=== PATIENT | male | born 1985 | race Caucasian/White ===

== ENCOUNTER 2023-12-17 23:10 | Emergency (ER) | payer OTHER, SELFPAY ==
--- NOTE | ~2023-12-17 | XR_ITS ---
Right Hand Technique: PA, oblique, and lateral views were obtained. Clinical History: Injury Findings: There is an oblique, intra-articular, minimally displaced fracture the distal aspect of the fifth proximal phalanx. No other fracture or dislocation seen.. Joint spaces are preserved. Soft tis sues are unremarkable. Impression: Acute, oblique, intra-articular, minimally displaced fracture of the distal portion of the fifth prox imal phalanx. Reviewed, dictated and finalized at location M. [employer] Impression: Acute, oblique, intra-articular, minimally displaced fracture of the distal por tion of the fifth proximal phalanx.
[2023-12-17 23:17] VITALS: BP 149/81; PULSE 92; RESP 16; TEMP 36.6; O2SAT 99
--- NOTE | 2023-12-18 02:58 | ED.GENADULT ---
HPI - General Adult General Chief complaint: Extremity Problem,Nontraumatic Stated complaint: R pinky swelling Time Seen by Provider: 12/18/23 02:55 Source: patient Mode of arrival: ambulatory Limitations: no limitations History of Present Illness HPI narrative: This is a 38-year-old male who presents to the ED with chief complaint of right 5th digit injury while playing flag football tonight. Reports that he hurt it while catching a ball and continue to increasing pain and swelling. The reports difficulty with range of motion due to pain. Denies any further sites of pain or injury. Related Data Allergies Allergy/AdvReac Type Severity Reaction Status Date / Time No Known Allergies Allergy Verified 12/18/23 02:54 Review of Systems Review of Systems: All systems as dictated in HPI Exam Narrative: GENERAL: Well-appearing, well-nourished, and in no acute distress. HEAD: Normocephalic, atraumatic. EYES: PERRLA and EOMI. ENT: Nares clear, no rhinorrhea or epistaxis. Mucous membranes moist. Oropharynx without tonsillar hypertrophy exudate or other lesions. NECK: Supple. No adenopathy or masses. CHEST: No respiratory distress. Clear to auscultation. No wheezes rales or rhonchi HEART: Regular rate and rhythm. No murmur heard. Normal peripheral pulses. ABDOMEN: Soft, nontender, nondistended, normal active bowel sounds. MSK: Normal range of motion. No edema. SKIN: Warm, dry, no rash. NEURO: Alert and oriented x3. No focal deficits. PSYCH: Normal mood and affect. Course Vital Signs Vital signs: Vital Signs Temperature 97.8 F 12/17/23 23:17 Pulse Rate 92 12/17/23 23:17 Respiratory Rate 16 12/17/23 23:17 Blood Pressure 149/81 H 12/17/23 23:17 Pulse Oximetry 99 12/17/23 23:17 Temperature 97.8 F 12/17/23 23:17 Pulse Rate 92 12/17/23 23:17 Respiratory Rate 16 12/17/23 23:17 Blood Pressure 149/81 H 12/17/23 23:17 Pulse Oximetry 99 12/17/23 23:17 Medical Decision Making [facility] Narrative Medical decision making narrative: This is a 38-year-old male who presents to the ED with chief complaint of right pinky injury while playing flag football tonight. Vitals are normal. Exam shows mild tenderness and swelling to the proximal right pinky. Neurovascularly intact distally. X-ray show a nondisplaced fracture of the proximal phalanx of the 5th digit of the right hand. He was placed in finger splint here. Hand referral given. pt will be discharged in stable condition. Return precautions given and supportive measures discussed. Pt is understanding and agreeable with plan for discharge and follow-up with PCP. Vital Signs Vital Signs: Vital Signs Temperature 97.8 F 12/17/23 23:17 Pulse Rate 92 12/17/23 23:17 Respiratory Rate 16 12/17/23 23:17 Blood Pressure 149/81 H 12/17/23 23:17 Pulse Oximetry 99 12/17/23 23:17 Temperature 97.8 F 12/17/23 23:17 Pulse Rate 92 12/17/23 23:17 Respiratory Rate 16 12/17/23 23:17 Blood Pressure 149/81 H 12/17/23 23:17 Pulse Oximetry 99 12/17/23 23:17 Discharge Plan Discharge Clinical Impression: Fracture of proximal phalanx of digit of hand Patient Disposition: Home, Self-Care Condition: Stable Instructions: Antibiotic Form Additional Instructions: Your exam and imaging today show evidence right pinky finger fracture. Please take Tylenol and ibuprofen regularly for pain control. Hephzibah has been prescribed for breakthrough pain. This should feel better with immobilization. Follow-up with hand doctor. If you have any new or worsening symptoms please return to the ER for evaluation Prescriptions: New hydrocodone-acetaminophen 5-325 mg tablet 1 tablet PO Q8H PRN (Reason: pain) Qty: 7 0RF Follow-up/Referrals: Jose F Ca MD [Physician] - PHYSICIAN,ACCOUNT SERVICES COORDINATOR [Primary Care Provider] - Time of Disposition: :02
[2023-12-18 03:19] VITALS: BP 139/78; PULSE 90; RESP 17; O2SAT 100
== END 2023-12-18 03:21 | disposition home or self-care (01) ==
LOC: ANHED 12-18 03:11
PROVIDERS: Emergency Provider Physician Assistant
DX: S62.616A Displaced fracture of proximal phalanx of right little finger, initial encounter for closed fracture (principal); W21.01XA Struck by football, initial encounter; Y93.62 Activity, american flag or touch football
CPT/HCPCS: 29130; 73130; 99284

== ENCOUNTER 2024-01-04 08:49 | Outpatient (CLI) | payer OTHER, SELFPAY ==
--- NOTE | ~2024-01-04 | XR_ITS ---
EXAMINATION: XR finger 5th RT min 2V INDICATION: Right fifth proximal phalanx fracture, follow-up TECHNIQUE: Four views of the right fifth finger are obtained. COMPARISON: 12/17/2023 FINDINGS: Again seen is an oblique fracture at the palmar aspect of the fifth proximal phalanx which extends to the proximal interphalangeal joint. Minimal calcified callus has developed at the fracture site. There is persistent soft tissue swelling surrounding the fracture. No additional fracture is s een. IMPRESSION: 1. Oblique fracture of the fifth proximal phalanx extending to the proximal interphalangeal joint wit h early routine healing. Reviewed, dictated and finalized at location B. RAM DIRECTOR/MUSIC DIRECTOR IMPRESSION: 1. Oblique fracture of the fifth proximal phalanx extending to the proximal int erphalangeal joint with early routine healing.
== END 2024-01-04 08:50 | disposition home or self-care (01) ==
PROVIDERS: PCP Plastic Surgery; Visit Provider Plastic Surgery
DX: S62.616D Displaced fracture of proximal phalanx of right little finger, subsequent encounter for fracture with routine healing (principal); X58.XXXD Exposure to other specified factors, subsequent encounter
CPT/HCPCS: 73140

== ENCOUNTER 2024-01-25 09:34 | Outpatient (CLI) | payer OTHER, SELFPAY ==
--- NOTE | ~2024-01-25 | XR_ITS ---
EXAMINATION: XR finger 5th RT min 2V DATE: 01/25/2024 09:46 INDICATION: Fracture of the right fifth proximal phalanx TECHNIQUE: Dorsal palmar, lateral and 2 oblique views of the right fifth digit were obtained COMPARISON: 12/17/2023 and 01/04/2024 FINDINGS: No significant interval change in an oblique intra-articular fracture of the right fifth proximal pha lanx. There is no change in minimal proximal, palmar and radial displacement of the fragment comprisi ng the radial side of the head of the phalanx. Small amount of adjacent callus formation, not yet def initively solidly bridging. There is still readily discernible lucency along the fracture plane. No o ther fractures identified. Mild osteoarthritis at the distal radioulnar joint. Joint spaces are other fleming normal. IMPRESSION: 1. No significant change in a still relatively early healing of a minimally displaced intra-articular fracture at the head of the right fifth proximal phalanx. Reviewed, dictated and finalized at location B. IMPRESSION: 1. No significant change in a still relatively early healing of a minimally dis placed intra-articular fracture at the head of the right fifth proximal phalanx .
== END 2024-01-25 09:35 | disposition home or self-care (01) ==
LOC: ANHIMG 09:37
PROVIDERS: PCP Plastic Surgery; Visit Provider Plastic Surgery
DX: S62.619D Displaced fracture of proximal phalanx of unspecified finger, subsequent encounter for fracture with routine healing (principal); X58.XXXD Exposure to other specified factors, subsequent encounter
CPT/HCPCS: 73140

== ENCOUNTER 2024-02-09 08:30 | Outpatient (RCR) | payer OTHER, SELFPAY ==
--- NOTE | 2024-01-15 09:48 | OTOPEVAL1 ---
Assessment and note entered by Jim Daley, IGNACIO/Radha, CHT Evaluation Information Assessment Status Evaluation Diagnosis Displaced fracture of proximal phalanx of small finger, right hand Onset ~4 weeks ago Subjective Information Patient presents today to begin ROM of the hand. He has been immobilized x4 weeks. He is left handed. 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 Reporting minimal pain. Reported Pain Level Additional Pain Score Comments No pain at rest. Pain increased to 5/10 with active ROM. Assessment OT Clinical Summary Patient referred to OT s/p right small finger 1st phalanx fracture, treated conservatively. He presents with residual stiffness, weakness, and pain that limits return of functional ROM and use of the hand. Skilled OT indicated to maximize functional ROM and strength of the right hand to facilitate return to use for work and ADLs without pain and stiffness. Plan of Care Interventions Therapeutic Exercise,Manual Therapy,Therapeutic Activities,Hot Pack/Cold Pack,Paraffin OT Services Indicated Yes Treatment Frequency and 1-2x/week for 8 visits Duration These treatments will address the objective and functional deficits as defined above. The patient will be advanced safely and appropriately in order for the patient to progress towards his/her prior level of function. Additional exercises will be introduced and as well as a comprehensive home exercise program upon discharge, if needed, ?to ensure carryover of functional gains achieved in the clinic. This treatment plan has been reviewed and agreement upon by the patient.
--- NOTE | 2024-02-09 08:53 | OTOPDC ---
Assessment and note entered by Jim Daley, OTR/L, CHT Discharge Summary 02/09/24 Diagnosis Displaces fracture of proximal phalanx of small finger, right hand Subjective Information Patient has been participating in therapy x4 weeks. 8 weeks out from the fracture. He is back to using his hand without restriction at work, reporting that's going well, some residual tenderness if he bumps the finger. Reports feeling like his strength and flexibility have improved. States he still has a ROM deficit, but feels like the exercises are helping. ROM of the right small finger: - MCP flexion 90 deg. - PIP flexion 90 deg. - PIP extension -15 deg. - DIP flexion 60 deg. 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 He has made excellent progress with therapy and has been compliant with all materials. Measurements today demonstrate progress toward regaining normal ROM and strength of the right hand. He verbalizes excellent understanding of his HEP and understands the importance of continued compliance of his HEP for optimal outcomes. No further skilled OT indicated at this time. D/C with HEP. Plan of Care OT Services Indicated No
== END 2024-02-09 09:17 | disposition home or self-care (01) ==
LOC: ANHOT 08:30
PROVIDERS: PCP Plastic Surgery; Visit Provider Plastic Surgery
DX: S62.619D Displaced fracture of proximal phalanx of unspecified finger, subsequent encounter for fracture with routine healing (principal)
CPT/HCPCS: 97018; 97110; 97165

== ENCOUNTER 2025-02-01 17:54 | Emergency (ER) | payer OTHER, SELFPAY ==
--- NOTE | ~2025-02-01 | XR_ITS ---
HISTORY: pain at posterior calcaneus, no injury COMPARISON: None TECHNIQUE: 3 views of the right ankle were performed FINDINGS: No acute fracture or dislocation. No significant soft tissue swelling. The ankle mortise is preserved. Bone mineralization is age-appropriate. Ossification of the insertion of the Achilles tendon is identified, likely the focus of clinical conc alberto. IMPRESSION: Degenerative disease (as detailed above) without acute fracture. Reviewed, dictated and finalized at location A.
[2025-02-01 18:05] VITALS: BP 144/79; PULSE 68; RESP 18; TEMP 36.8; O2SAT 99
--- NOTE | 2025-02-01 18:58 | ED_ITS ---
HPI - Extremity Injury (Lower) General Chief Complaint: Extremity Injury, Lower Stated Complaint: Right Foot Pain Time Seen by Provider: 02/01/25 18:50 Source: patient and RN notes reviewed Mode of arrival: ambulatory (limping) Limitations: no limitations History of Present Illness HPI Narrative: Patient presents today complaining of pain to the right posterior ankle x3 days. Denies known injury or trauma. Denies numbness or tingling in the ankle or foot. Denies any known repetitive motions that may be causing his discomfort. He tried some ibuprofen today with mild relief. Currently rates his pain 8/10 w ith walking. Related Data Allergies Allergy/AdvReac Type Severity Reaction Status Date / Time No Known Allergies Allergy Verified 02/01/25 17:59 Review of Systems Review of Systems: CONSTITUTIONAL: Denies body aches, fever, chills, or sweats. EYES: Denies visual changes, redness, or discharge. ENT: Denies rhinorrhea, congestion, sore throat, or otalgia. CARDIOVASCULAR: Denies chest pain, palpitations, or edema. RESPIRATORY: Denies cough or dyspnea. GASTROINTESTINAL: Denies abdominal pain, nausea, vomiting, or diarrhea. GENITOURINARY: Denies dysuria or hematuria. SKIN: Denies rash, itching, or wounds. MUSCULOSKELETAL: + right heel pain NEUROLOGIC: Denies headache, numbness, tingling, or weakness. PSYCH: Denies depression or anxiety. [facility] Social History Social History Smoking status: Never smoker Comments At time of signature, I have reviewed and agree with nursing past medical, surgical, social and family history unless otherwise noted. Please see nursing chart for further information. There is no relevant family history pertinent to the presenting complaint Exam Narrative: GENERAL: Well-appearing, well-nourished, and in no acute distress. HEAD: Normocephalic, atraumatic. EYES: EOMI. No redness or drainage. Conjunctivae normal. ENT: Mucous membranes pink and moist. NECK: Normal AROM. CHEST: No respiratory distress. EXTREMITIES: Right foot: Point tenderness to the posterior right calcaneus. No additional pain or discomfort with palpation of the Achilles tendon for lateral heel or ankle. No edema, ecchymosis, erythema noted. Distal sensation intact. Capillary refill normal. Pedal pulse normal. Patient does have some discomfort with range of motion of the ankle. SKIN: Warm, dry, no rash. Capillary refill normal. Normal skin turgor. NEURO: No focal deficits. Alert and oriented x3. Gait steady. PSYCH: Normal affect. No signs of depression or anxiety. Course Course Level of Care: Express Care Visit Vital Signs Vital signs: Vital Signs Temperature 98.2 F 02/01/25 18:05 Pulse Rate 68 02/01/25 18:05 Respiratory Rate 18 02/01/25 18:05 Blood Pressure 144/79 H 02/01/25 18:05 Pulse Oximetry 99 02/01/25 18:05 Oxygen Delivery Room Air 02/01/25 18:05 Temperature 98.2 F 02/01/25 18:05 Pulse Rate 68 02/01/25 18:05 Respiratory Rate 18 02/01/25 18:05 Blood Pressure 144/79 H 02/01/25 18:05 Pulse Oximetry 99 02/01/25 18:05 Oxygen Delivery Room Air 02/01/25 18:05 Reviewed MDM - Extremity Injury (Lower) MDM Narrative Medical decision making narrative: X-ray shows no acute fracture or dislocation, but does show ossification at the insertion of the Achilles tendon, likely the focus of patient's pain. Discussed taking NSAID, prescription for diclofenac sent to pharmacy, with rest, ice, and follow-up with podiatry. Differential Diagnosis Differential diagnosis: Likely ankle sprain and strain, ankle fracture and other (Bone spur, arthritis, Achilles tendinitis) Imaging Data Radiologist's impression: ITS Impressions Ankle X-Ray 02/01/25 19:17 IMPRESSION: Degenerative disease (as detailed above) without acute fracture. Critical Care Time Critical Care Time Critical Care Time: No Discharge Plan Discharge Clinical Impression: Achilles tendon pain Patient Disposition: Home, Self-Care Condition: Stable Additional Instructions: Your x-ray has shown ossification at the insertion of your Achilles tendon, which is likely causing your pain. Elevate and ice the foot. Take the diclofenac for pain if needed. Follow-up with podiatry for further evaluation and treatment. Your blood pressure was elevated above 120/80 today at Urgent Care. This puts you above the threshold for follow up. Please schedule a followup visit with your personal physician as soon as possible, for further evaluation and treatment. Even blood pressure exceeding 120/80 may indicate pre-hypertension. Patient Language: Albanian Prescriptions: New diclofenac sodium 50 mg tablet,delayed release (DR/EC) 50 mg PO TID PRN (Reason: pain) Qty: 30 0RF Follow-up/Referrals: Steve Jones DPM [Physician] - Margarito,Debora Troy DPM [Non-Staff] - PHYSICIAN,DISPATCHER [employer] [Primary Care Provider] - Time of Disposition: 19:32
== END 2025-02-01 19:40 | disposition home or self-care (01) ==
PROVIDERS: Emergency Provider Nurse Practitioner
DX: M67.873 Other specified disorders of tendon, right ankle and foot (principal)
CPT/HCPCS: 73610; 99213; G0463

== ENCOUNTER 2025-05-19 12:03 | Emergency (ER) | payer OTHER, SELFPAY ==
[2025-05-19 12:11] VITALS: BP 140/76; PULSE 63; RESP 18; TEMP 36.7; O2SAT 99
--- NOTE | 2025-05-19 12:24 | ED_ITS ---
HPI - General Adult General Chief complaint: Dental/Oral Stated complaint: Dental Pain Source: patient Mode of arrival: ambulatory Limitations: no limitations History of Present Illness HPI narrative: Patient presents for evaluation of left-sided dental pain. Symptom onset approximately 2 weeks ago. He has several fractured teeth. No fever, chills, nausea, vomiting. He does not smoke. He rates the symptoms 8/10 severity. He took ibuprofen 200 mg with some improvement thereafter. Related Data Allergies Allergy/AdvReac Type Severity Reaction Status Date / Time No Known Allergies Allergy Verified 05/19/25 12:08 Review of Systems Review of Systems: CONSTITUTIONAL: Denies fever, chills, or sweats. EYES: Denies visual changes, redness, or discharge. ENT: Reports left sided dental pain. Denies rhinorrhea, congestion, sore throat, or otalgia. CARDIOVASCULAR: Denies chest pain, palpitations, or edema. RESPIRATORY: Denies cough or dyspnea. GASTROINTESTINAL: Denies abdominal pain, nausea, vomiting, or diarrhea. GENITOURINARY: Denies dysuria or hematuria. SKIN: Denies rash or itching. MUSCULOSKELETAL: Denies back pain, joint pain, or myalgia. NEUROLOGIC: Denies headache, numbness, dizziness, or weakness. PSYCHIATRIC: Denies anxiety or depression. PMFSH Past Medical History Medical History No pertinent past medical history Surgical History Surgical History No pertinent past surgical history Family History Family History Mother Family history non-contributory Social History Social History Smoking status: Never smoker Substance use: never Gender identity (if verbalized by the patient): Male Spiritual care concerns: No Exam Narrative: GENERAL: Well-appearing, well-nourished, and in no acute distress. HEAD: Normocephalic, atraumatic. EYES: PERRLA and EOMI. ENT: Nares clear, no rhinorrhea or epistaxis. Mucous membranes moist. Tooth #13 and tooth #19 are fractured. There is no visible or palpable abscess. Oropharynx without tonsillar hypertrophy exudate or other lesions. Bilateral TMs pearly masters nonbulging NECK: Supple. No adenopathy or masses. No carotid bruits or JVD CHEST: Clear to auscultation. No respiratory distress. No wheezes rales or rhonchi HEART: Regular rate and rhythm. No murmur heard. Normal peripheral pulses. ABDOMEN: Soft, nontender, nondistended, normal active bowel sounds. EXTREMITIES: Normal range of motion. No edema. SKIN: Warm, dry, no rash. NEURO: No focal deficits. Alert and oriented x3. PSYCH: Normal mood and affect. Course Course Emergency Course: This is a 39-year-old male who presented for evaluation of left sided dental pain. He has several fractures present. He may increase his ibuprofen from 200 mg to 800 mg and may take it 3 times daily with food. Will add penicillin. Follow-up with dentist. Go to the ER for worsening symptoms. Patient in agreement with plan of care Level of Care: Express Care Visit Vital Signs Vital signs: Vital Signs Temperature 36.7 C 05/19/25 12:11 Pulse Rate 63 05/19/25 12:11 Respiratory Rate 18 05/19/25 12:11 Blood Pressure 140/76 05/19/25 12:11 Pulse Oximetry 99 05/19/25 12:11 Oxygen Delivery Room Air 05/19/25 12:11 Temperature 36.7 C 05/19/25 12:11 Pulse Rate 63 05/19/25 12:11 Respiratory Rate 18 05/19/25 12:11 Blood Pressure 140/76 05/19/25 12:11 Pulse Oximetry 99 05/19/25 12:11 Oxygen Delivery Room Air 05/19/25 12:11 Medical Decision Making Vital Signs Vital Signs: Vital Signs Temperature 36.7 C 05/19/25 12:11 Pulse Rate 63 05/19/25 12:11 Respiratory Rate 18 05/19/25 12:11 Blood Pressure 140/76 05/19/25 12:11 Pulse Oximetry 99 05/19/25 12:11 Oxygen Delivery Room Air 05/19/25 12:11 Temperature 36.7 C 05/19/25 12:11 Pulse Rate 63 05/19/25 12:11 Respiratory Rate 18 05/19/25 12:11 Blood Pressure 140/76 05/19/25 12:11 Pulse Oximetry 99 05/19/25 12:11 Oxygen Delivery Room Air 05/19/25 12:11 Discharge Plan Discharge Clinical Impression: Fracture of tooth Patient Disposition: Home Condition: Stable Instructions: Antibiotic Form, Toothache (ED) Patient Language: Indonesian Prescriptions: New penicillin V potassium 500 mg tablet 500 mg PO Q6H Qty: 40 0RF Follow-up/Referrals: Darwin Webster MD [Physician] - Time of Disposition: 12:22
== END 2025-05-19 12:27 | disposition home or self-care (01) ==
PROVIDERS: Emergency Provider Nurse Practitioner
DX: S02.5XXA Fracture of tooth (traumatic), initial encounter for closed fracture (principal); X58.XXXA Exposure to other specified factors, initial encounter
CPT/HCPCS: 99213; G0463

== ENCOUNTER 2025-07-30 17:40 | Emergency (ER) | payer OTHER, SELFPAY ==
--- NOTE | ~2025-07-30 | XR_ITS ---
EXAMINATION: XR finger 5th LT min 2V, 07/30/2025 17:51 CDT HISTORY: LT 5th digit pain/bruising@mcp/prox phalanx jammed today COMPARISON: No comparisons available. Findings: Slightly displaced fracture proximal aspect proximal phalanx fifth digit. No significant degenerative changes. Soft tissues unremarkable. Impression: Fracture detailed above Reviewed, dictated and finalized at location A. Impression: Fracture detailed above
[2025-07-30 17:50] VITALS: BP 129/77; PULSE 79; RESP 18; TEMP 36.7; O2SAT 98
--- NOTE | 2025-07-30 17:59 | ED_ITS ---
HPI - Extremity Injury (Upper) General Chief Complaint: Extremity Injury, Upper Stated Complaint: Left Hand Finger Pain Time Seen by Provider: 07/30/25 18:00 Source: patient Mode of arrival: ambulatory Limitations: no limitations History of Present Illness HPI narrative: 39-year-old male presents with complaint of pain, swelling and bruising to left little finger. Pain started after sliding into 3rd base during kickball game. Range of motion decreased due to pain, distal neurovascularly intact. All systems reviewed and negative except as noted above. Related Data Home Medications ?Medication ?Instructions ?Recorded ?Confirmed ?Last Taken ?Type No Home Medications 07/30/25 07/30/25 U nknown History Allergies Allergy/AdvReac Type Severity Reaction Status Date / Time No Known Allergies Allergy Verified 07/30/25 17:50 [facility] Past Medical History Medical History No pertinent past medical history Surgical History Surgical History No pertinent past surgical history Family History Family History Mother Family history non-contributory Social History Social History Smoking status: Never smoker Substance use: never Gender identity (if verbalized by the patient): Male Spiritual care concerns: No Comments At time of signature, agree with nursing past medical, surgical, social and family history. There is no relevant family history pertinent to the presenting complaint. Exam Narrative: GENERAL: This is a well-nourished, well-developed patient, in no apparent distress. HEAD: normocephalic, atraumatic. EYES: PERRL. Sclera clear/white. Vision is grossly intact. EARS: External ears normal NOSE: External nose normal NECK: Neck supple, non-tender without lymphadenopathy, masses or thyromegaly. CARDIOVASCULAR: Regular rate and rhythm without murmurs, gallops, or rubs. RESPIRATORY: Clear to auscultation. Breath sounds equal bilaterally. No wheezes, rales, or rhonchi. SKIN: warm, Dry, intact with no suspicious lesions or rash, good texture and turgor. NEURO: awake, alert, and oriented to person, place and time. There were no obvious focal neurologic abnormalities. EXTREMITIES: Swelling to left little finger with bruising, tender to proximal phalanx. No deformity. Range of motion decreased due to pain and swelling. Distal neurovascularly intact. Course Course Level of Care: Express Care Visit Vital Signs Vital signs: Vital Signs Temperature 36.7 C 07/30/25 17:50 Pulse Rate 79 07/30/25 17:50 Respiratory Rate 18 07/30/25 17:50 Blood Pressure 129/77 07/30/25 17:50 Pulse Oximetry 98 07/30/25 17:50 Oxygen Delivery Room Air 07/30/25 17:50 Temperature 36.7 C 07/30/25 17:50 Pulse Rate 79 07/30/25 17:50 Respiratory Rate 18 07/30/25 17:50 Blood Pressure 129/77 07/30/25 17:50 Pulse Oximetry 98 07/30/25 17:50 Oxygen Delivery Room Air 07/30/25 17:50 Reviewed MDM - Extremity Injury (Upper) MDM Narrative Medical decision making narrative: x-ray of left little finger shows fracture to left proximal phalanx little finger with slight displaced. Patient placed in a finger splint. Referred to as he has seen him in the past when he fractured his right little finger. Differential Diagnosis Differential diagnosis: Likely finger sprain, dislocation of finger, fracture of hand and other (finger fracture) Imaging Data My impression: agree with radiologist Radiologist's impression: Ordering Physician: Clementina Galeana APRN Date of Service: 07/30/25 Procedure(s): XR finger 5th LT min 2V Accession Number(s): [id number] cc: SH[employer] MANAGER PHYSICIAN; Clementina Galeana APRN~ EXAMINATION: XR finger 5th LT min 2V, 07/30/2025 17:51 CDT HISTORY: LT 5th digit pain/bruising@mcp/prox phalanx jammed today COMPARISON: No comparisons available. Findings: Slightly displaced fracture proximal aspect proximal phalanx fifth digit. No significant degenerative changes. Soft tissues unremarkable. Impression: Fracture detailed above Discharge Plan Discharge Clinical Impression: Fracture of proximal phalanx of left little finger Qualifiers: Encounter type: initial encounter Fracture type: closed Fracture alignment: displaced Qualified Code(s): S62.617A - Displaced fracture of proximal phalanx of left little finger, initial encounter for closed fracture Patient Disposition: Home Condition: Stable Instructions: Finger Fracture (ED) Additional Instructions: the x-ray of your left little finger shows a fracture to your proximal phalanx. There is slight displacement. Wear finger splint. Take ibuprofen or Tylenol every 6-8 hours as needed for pain. Elevate when at rest. Follow-up with hand specialist for fracture care. Patient Language: Mexican Prescriptions: No Action No Home Medications Follow-up/Referrals: Jose F Ca MD [Physician, Plastic Surgery] Referral Note: follow up for fracture care PHYSICIAN,SHOPPING CENTRE MANAGER [Primary Care Provider, Internal Medicine] Stand Alone Forms: Work/School Release IP Time of Disposition: 18:15
== END 2025-07-30 18:29 | disposition home or self-care (01) ==
PROVIDERS: Emergency Provider Nurse Practitioner Family
DX: S62.617A Displaced fracture of proximal phalanx of left little finger, initial encounter for closed fracture (principal); W22.8XXA Striking against or struck by other objects, initial encounter; Y93.6A Activity, physical games generally associated with school recess, summer camp and children
CPT/HCPCS: 29130; 73140; 99213; G0463

== ENCOUNTER 2025-08-14 07:01 | Outpatient (CLI) | payer OTHER, SELFPAY ==
--- NOTE | ~2025-08-14 | XR_ITS ---
EXAMINATION: XR hand LT min 3V DATE: 08/14/2025 07:16 INDICATION: Displaced fracture proximal phalanx TECHNIQUE: 4 images of the left hand were obtained. COMPARISON: 07/30/2015 FINDINGS: Grossly stable displaced fracture of the base of the proximal phalanx of the fifth digit with intra-articular extension into the fifth metacarpophalangeal joint with adjacent soft tissue swelling. Alignment is similar to the study from 07/30/2025. No other fracture identified. Bone mineralization is within normal limits. IMPRESSION: 1. Grossly stable displaced fracture of the base of the proximal phalanx of the fifth digit with intra-articular extension into the fifth metacarpophalangeal joint with adjacent soft tissue swelling. Reviewed, dictated and finalized at location Q.
== END 2025-08-14 07:02 | disposition home or self-care (01) ==
PROVIDERS: Visit Provider Plastic Surgery
DX: S62.617A Displaced fracture of proximal phalanx of left little finger, initial encounter for closed fracture (principal); S63.657A Sprain of metacarpophalangeal joint of left little finger, initial encounter; X58.XXXA Exposure to other specified factors, initial encounter
CPT/HCPCS: 73130

== ENCOUNTER 2025-09-04 07:03 | Outpatient (CLI) | payer OTHER, SELFPAY ==
--- NOTE | ~2025-09-04 | XR_ITS ---
EXAMINATION: XR finger 5th LT min 2V, 09/04/2025 7:10 CDT HISTORY: S62.617A - Displaced fracture of proximal phalanx of left... COMPARISON: No comparisons available. Findings: There is a healing nondisplaced angulated fracture proximal aspect of the proximal phalanx. No significant degenerative changes. Soft tissues unremarkable. Impression: Healing fracture Reviewed, dictated and finalized at location P. Impression: Healing fracture
== END 2025-09-04 07:04 | disposition home or self-care (01) ==
PROVIDERS: Visit Provider Plastic Surgery
DX: S62.617A Displaced fracture of proximal phalanx of left little finger, initial encounter for closed fracture (principal); X58.XXXA Exposure to other specified factors, initial encounter
CPT/HCPCS: 73140